=== PATIENT | male | born 1995 | race Caucasian/White ===

== ENCOUNTER 2017-04-10 13:45 | Emergency (ER) | payer BC, OTHER ==
[2017-04-10 13:50] VITALS: BMI 26.6
--- NOTE | 2017-04-10 13:57 | PDOC ---
History of Present Illness - General History Source: Patient Exam Limitations: No Limitations - History of Present Illness Initial Comments: 04/10/17 15:58 21 year old male, with no significant past medical history, who was struck in the left lateral calf by a chainsaw being operated by another person. There was bleeding to the site. No distal numbness, tingling, weakness, or limited ROM. Pain is confined to the area of the injury. No other injuries were incurred. Denies head trauma, LOC, or any other injuries. PMHX: healthy 21 year old male with no past medical history Social Hx: No tobacco use. No alcohol use. No recreational drug use. Family Hx: reviewed and non contributory. <Yaneli Marcos - Last Filed: 04/10/17 15:58> <Dennis Rocha - Last Filed: 04/10/17 16:49> - General Chief Complaint: Injury Stated Complaint: LLE LAC FR CHAINSAW Time Seen by Provider: 04/10/17 13:57 Past History <Yaneli Marcos - Last Filed: 04/10/17 15:58> - Past Medical History Other medical history: DENIES - Psycho/Social/Smoking Cessation Hx Anxiety: No Suicidal Ideation: No Smoking History: Never smoked Have you smoked in the past 12 months: No Information on smoking cessation initiated: No Hx Alcohol Use: (occasional) <Dennis Rocha - Last Filed: 04/10/17 16:49> - Past Medical History Allergies/Adverse Reactions: Allergies Allergy/AdvReac Type Severity Reaction Status Date / Time No Known Drug Allergies Allergy Verified 04/10/17 13:48 Home Medications: Ambulatory Orders NK [No Known Home Medication] 04/10/17 Review of Systems - Review of Systems Able to Perform ROS?: Yes Comments:: 04/10/17 15:58 CONSTITUTIONAL: Absent: fever, no chills, no fatigue EYES: Absent: visual changes ENT: Absent: ear pain, no sore throat CARDIOVASCULAR: Absent: chest pain, no palpitations RESPIRATORY: Absent: cough, no SOB GI: Absent: abdominal pain, no nausea, no vomiting, no constipation, no diarrhea GENITOURINARY: Absent: dysuria, no frequency, no hematuria MUSCULOSKELETAL: Absent: back pain, no arthralgia, no myalgia SKIN: Present: laceration to the left lateral calf Absent: rash <Yaneli Marcos - Last Filed: 04/10/17 15:58> *Physical Exam - Vital Signs Last Vital Signs Temp Pulse Resp BP Pulse Ox 98.4 F 82 18 139/75 98 04/10/17 13:45 04/10/17 13:45 04/10/17 13:45 04/10/17 13:45 04/10/17 13:45 <Yaneli Marcos - Last Filed: 04/10/17 15:58> - Vital Signs Last Vital Signs Temp Pulse Resp BP Pulse Ox 98.4 F 82 18 139/75 98 04/10/17 13:45 04/10/17 13:45 04/10/17 13:45 04/10/17 13:45 04/10/17 13:45 <Dennis Rocha - Last Filed: 04/10/17 16:49> ED Treatment Course - RADIOLOGY Radiograph Interpretation: 04/10/17 15:53 EXAM#: TYPE/EXAM: RESULT: [id number] RAD/LEG TIB/FIB-LEFT Left tibia and fibula: Trauma. Pain. Imaging reveals soft tissue injury by the proximal left fibula along its lateral soft tissue calf margin. The bones appear intact. There is no sign of a foreign body. Effusion is not seen. The ankle joint is intact. Impression: Soft tissue injury by proximal fibula. If symptoms persist, further imaging may be of help. Reported By: Brian Earl MD 04/10/17 1548 - Medications Given in the ED: ED Medications Discontinued Medications Generic Name Dose Route Start Last Admin Trade Name Freq PRN Reason Stop Dose Admin Diphtheria/Tetanus/Acell Pertussis 0.5 ml 04/10/17 14:53 04/10/17 15:17 Boostrix - IM 04/10/17 14:54 0.5 ml ONCE ONE Administration Cefazolin Sodium 1 gm/ 50 mls @ 100 mls/hr 04/10/17 14:52 04/10/17 15:18 Dextrose IVPB 04/10/17 15:21 100 mls/hr ONCE ONE Administration <Yaneli Marcos - Last Filed: 04/10/17 15:58> Medical Decision Making - Medical Decision Making 04/10/17 16:43 Examination reveals a deep laceration of the mid calf, left lateral aspect. Distal pulses are full and there is no sensory or motor deficit demonstrable. X- ray is negative except for soft tissue injury. Drs. Valderrama and Santana were paged. I was informed that Dr. Valderrama was in the operating room and Dr. Dillon was busy seeing patients and was not able to come to the phone immediately. I left a request to be called back as soon as possible No return call was received. I then attempted to contact Dr. Dennis who is on-call for plastic surgery. I was informed by his office that he was out of the [place] 4 [place]. A call to the medical staff office at [facility] revealed that they were not aware Dr. Dennis' s absence [facility] was consulted for transfer. Spoke to trauma surgeon Dr. Rader. He agreed to accept the patient for exploration and repair of the wound. The patient was administered intravenous antibiotics, a tetanus booster, and analgesics, and remained comfortable until his transfer. 04/10/17 16:47 Repeat examination of the lower extremity revealed full pulses, no sensory or motor deficits as before. <Dennis Rocha - Last Filed: 04/10/17 16:49> *DC/Admit/Observation/Transfer - Attestations Scribe Attestion: 04/10/17 15:58 Documentation prepared by SOHAIL Jerome, acting as medical lab assistant for Dennis Rocha MD. <Yaneli Marcos - Last Filed: 04/10/17 15:58> - Discharge Dispostion Admit: No <Dennis Rocha - Last Filed: 04/10/17 16:49> Diagnosis at time of Disposition: Laceration of left lower extremity Qualifiers: Encounter type: initial encounter Qualified Code(s): S81.812A - Laceration without foreign body, left lower leg, initial encounter - Discharge Dispostion Disposition: TRANSFER ACUTE CARE/OTHER HOSP Condition at time of disposition: Stable
[2017-04-10] MEDS ORDERED: CEFAZOLIN 1 GM in DEXTROSE 5%-WATER - 50 ML IVPB ONE (14:52)
[2017-04-10] MEDS ORDERED: DIPHTH,PERTUSS(ACELL),TET 0.5 ML DISP.SYRIN IM ONE (14:53)
[2017-04-10] MEDS ORDERED: ceFAZolin SODIUM 1 GM VIAL ONE (14:57)
[2017-04-10] MEDS ORDERED: KETOROLAC TROMETHAMINE 30 MG/1 ML VIAL ONE (15:15)
[2017-04-10 16:01] VITALS: BP 134/80; PULSE 78; TEMP 98.1
[2017-04-10] MEDS ORDERED: KETOROLAC TROMETHAMINE 30 MG/1 ML VIAL IVPUSH ONE (16:03)
== END 2017-04-10 17:10 | disposition short-term general hospital (02) ==
LOC: FER 13:45
PROC: 3E0234Z Introduction of Serum, Toxoid and Vaccine into Muscle, Percutaneous Approach (ICD-10-PCS; principal; 2017-04-10)
PROC: 3E0333Z Introduction of Anti-inflammatory into Peripheral Vein, Percutaneous Approach (ICD-10-PCS; 2017-04-10)
PROC: 3E03329 Introduction of Other Anti-infective into Peripheral Vein, Percutaneous Approach (ICD-10-PCS; 2017-04-10)
DX: S81.812A Laceration without foreign body, left lower leg, initial encounter (principal); W29.3XXA Contact with powered garden and outdoor hand tools and machinery, initial encounter; Y93.89 Activity, other specified; Y92.9 Unspecified place or not applicable; Y99.0 Civilian activity done for income or pay
CPT/HCPCS: 73590-TC-LT; 90715; 99284-25